=== PATIENT | female | born 1985 | race Caucasian/White ===

== ENCOUNTER → 2021-06-04 16:09 | Outpatient (CLI) | payer OTHER, SELFPAY ==
--- NOTE | 2021-06-04 | DI.US.S_ITS ---
PROCEDURE: US PELVIC COMPLETE INDICATIONS: RETAINED PLACENTA WITHOUT HEMORRHAGE TECHNIQUE: Real-time scanning was performed of the pelvic organs, with image documentation. Additional endovaginal scanning was necessary due to incomplete visualization of the adnexal and endometrial structures by transabdominal scanning. COMPARISON: None. FINDINGS: Uterus: Uterus is normal in size at 10.7 x 5.1 x 7.8 cm. The endometrium measures 4.7 mm in combined thickness. Small amount endometrial fluid. Ovaries: Normal ovaries. No adnexal masses. Other: No pathologic free abdominal or pelvic fluid. IMPRESSION: Small amount of endometrial fluid and no definitive retained products of conception. Of note, no endovaginal exam was performed at the patient's request. Dictated by: Handy JO Interpreted: Ree Rodriguez MD on 06/04/2021 at 17:00 Transcribed by: TELMA on 06/04/2021 at 17:01 Approved by: Ree Rodriguez M.D. on 06/04/2021 at 20:01
== END ==
PROVIDERS: PCP Family Medicine; Referring Provider Midwife; Visit Provider Midwife
DX: O73.0 Retained placenta without hemorrhage (principal)
CPT/HCPCS: 76856

== ENCOUNTER → 2022-05-03 13:25 | Outpatient (CLI) | payer OTHER, SELFPAY ==
--- NOTE | 2022-05-03 13:31 | DI.CT.S_ITS ---
PROCEDURE: CT HAND LEFT WITHOUT CON INDICATIONS: pain TECHNIQUE: Noncontrast 1 mm axial sections acquired through the carpal bones, with coronal and sagittal reformats. COMPARISON: [facility], CT, CT WRIST LEFT WITHOUT CON, 05/03/2022, 14:20. FINDINGS: Image quality: Excellent. Bones: At the base of the 5th metacarpal, there is a moderately displaced, comminuted, intra-articular fracture seen. No additional fractures are seen. No suspicious lytic or blastic lesions are seen. Note is made of negative ulnar variance. This can predispose to development of AVN of the lunate. However, no findings of AVN of the lunate are seen on these plain films. Soft tissues: There is soft tissue swelling seen. IMPRESSION: 5th metacarpal base fracture, with comminution and intra-articular involvement. Dictated by: Charly Green M.D. on 05/03/2022 at 14:56 Approved by: Charly Green M.D. on 05/03/2022 at 14:58
--- NOTE | 2022-05-03 13:32 | DI.CT.S_ITS ---
PROCEDURE: CT WRIST LEFT WITHOUT CON INDICATIONS: FX Left Metacarpal Bone TECHNIQUE: Noncontrast 1 mm axial sections acquired through the carpal bones, with coronal and sagittal reformats. COMPARISON: [facility], CT, CT HAND LEFT WITHOUT CON, 05/03/2022, 14:20. FINDINGS: Image quality: Excellent. Bones: There is a comminuted, impacted fracture seen involving the base of the 5th metacarpal, with intra-articular involvement. Moderate displacement is seen. No dislocation can be seen. No additional fractures are detected. Note is made of negative ulnar variance. This can predispose to development of AVN of the lunate. However, no findings of AVN of the lunate are seen on these plain films. No suspicious lytic or blastic lesions are seen. Soft tissues: Soft tissue swelling is seen. IMPRESSION: Comminuted, intra-articular fracture seen at the base of the 5th metacarpal. Dictated by: Charly Green M.D. on 05/03/2022 at 14:54 Approved by: Charly Green M.D. on 05/03/2022 at 14:56
== END ==
PROVIDERS: PCP Family Medicine; Referring Provider Naturopath; Visit Provider Naturopath
DX: S62.317A Displaced fracture of base of fifth metacarpal bone, left hand, initial encounter for closed fracture (principal); S62.301A Unspecified fracture of second metacarpal bone, left hand, initial encounter for closed fracture; X58.XXXA Exposure to other specified factors, initial encounter
CPT/HCPCS: 73200

== ENCOUNTER → 2023-01-17 13:03 | Outpatient (CLI) | payer OTHER, SELFPAY | PROVIDERS: PCP Physician Assistant; Visit Provider Nurse Practitioner Family | DX: R21 Rash and other nonspecific skin eruption (principal) | CPT/HCPCS: 87070; 87075; 87205 ==

== ENCOUNTER 2023-05-12 11:00 | Outpatient (CLI) | payer OTHER, SELFPAY ==
--- NOTE | 2023-05-12 11:07 | PM.PROC.1 ---
Procedures Date/Time Date of procedure: 05/12/23 Time of procedure: 11:07
== END 2023-05-12 11:50 | disposition home or self-care (01) ==
LOC: LABOR 11:12 → OB 05-14 12:20
PROVIDERS: PCP Physician Assistant; Referring Provider Advanced Practice Midwife; Visit Provider Advanced Practice Midwife
DX: O48.0 Post-term pregnancy (principal); O99.820 Streptococcus B carrier state complicating pregnancy; Z3A.41 41 weeks gestation of pregnancy
CPT/HCPCS: 59025; 76815; G0378; G0379

== ENCOUNTER 2023-05-13 18:56 | Inpatient (IN) | payer OTHER, SELFPAY ==
--- NOTE | 2023-05-13 19:24 | PM.OBHP.1 ---
OB HPI Date/Time Date of admission: 05/13/23 Date Patient Seen: 05/13/23 Time Patient Seen: 19:24 History of Present Condition Chief complaint: OB : 2 Para: 1 Estimated Date of Delivery: 05/05/23 Estimated Gestational Age (weeks): 41w1d Narrative: Odette Antonio is a 38 year old female at 41.1 wks by 10 week US. Today, 05/13/23, she contracted off and on all day, with stronger contractions in the afternoon and suspected SROM of clear fluid at 1900 with vomiting as she was leaving to come to the hospital. She is accompanied by her supportive Shakeel and desires an unmedicated delivery. She had an uncomplicated and received thorough care with CNMs. History of Present care: good care, initiated at week # (10), number of visits (10) and pounds weight gain (48) Dating criteria: based on 1st trimester US only Ultrasounds: normal 1st trimester US and normal mid trimester US Obstetrical complications: none Medical complications: other (Genital HSV, GBS bacteriuria, Covid in , yeast vaginitis during ) Preadmission Labs Blood type: A (-) negative -: Antibody screen: negative, Cystic fibrosis screen: unknown, GBS status: positive, HBsAG: negative, HIV: negative, HSV 1: negative, HSV 2: negative and RPR/VDLR: negative -: Chlamydia screen: not detected and Gonorrhea screen: not detected -: Rubella: immune and Varicella: immune HCT: 12.2 HCAB: negative PAP: Normal (in late 2019 per patient) Cell-free DNA: Declined all genetic testing options 1 hr GTT: 118 Prior (ies) History: NSVB 05/17/2021 Evaluation Evaluation Baseline heart rate: 125 Variability: Moderate (11-25) monitor accelerations: Present Monitor Decelerations: Absent Contraction Frequency (minutes): 3 Uterine Contraction Intensity: Strong/Firm Status: Category l Dilation (cm): 4 Effacement (%): 80 Dilation: 3-4 cm Effacement: >/=80% station: -2 Position of cervix: mid Consistency: soft Sheldon score: 9 Comments: Strong suspicion for ruptured membranes as she vomited while on her way to the hospital; approx 1900 05/13/23. Clear/pink fluid noted during exam. [facility] Medical History Chlamydia Fx metatarsal-closed (11/14/02) GBS bacteriuria Herpes genitalia RhD negative Uterine prolapse Yeast vaginitis Social History (Updated 05/13/23 @ 22:36 by Jadyn Pizarro CNM, MAGDALENA) marital status: number of children: 1 household members: spouse and children housing: house do you feel safe at home: Yes Smoking Status: Former smoker alcohol intake: former Meds Home Medications and Allergies Allergies Allergy/AdvReac Type Severity Reaction Status Date / Time No Known Drug Allergies Allergy Verified 01/17/23 12:35 Review of Systems Review of Systems Narrative: Negative except as mentioned in HPI. OB Exam Vital signs Blood Pressure: 115/59 Pulse Rate: 78 Respiratory Rate: 16 Temperature: 36.6 F Eyes General: appearance normal, both eyes and all related structures Resp Effort & Inspection: normal respiratory effort Auscultation: clear to auscultation bilaterally Cardio Rate: regular rate Rhythm: regular rhythm Extremities Lower extremity: Yes edema Laterality: bilateral edema degree: trace GI Inspection: other (Gravid) Objective Labs 05/13/23 19:45 Assessment and Plan Assessment and Plan Assessment and Plan narrative: A: 38yo female at 41.1wks Early labor SROM suspected Genital HSV Hx uterine prolapse Hx Covid in GBS positive Rh neg FHR Cat 1 P:Admit to center Antibiotics for GBS prophylaxis Confirmed acyclovir for HSV prophylaxs Continous EFM Anticipate NSVB
[2023-05-13 20:50] LABS: Add Manual Diff / Slide Review NO; Basophils Absolute Auto 100 /uL (0-100); Basophils Percent Auto 0.4 % (0-2); Eosinophils Absolute Auto 100 /uL (0-450); Eosinophils Percent Auto 0.6 % (2-4); Hematocrit 39.3 % (36-46); Hemoglobin 13.7 g/dL (12.0-16.0); Lymphocytes Absolute Auto 2200 /uL (1100-4500); Lymphocytes Percent Auto 12.8 % (25-40); Mean Corpuscular HGB Conc 34.9 % (30-36); Mean Corpuscular Hemoglobin 33.5 PG (26-34); Monocytes Absolute Auto 1100 /uL (0-900); Monocytes Percent Auto 6.3 % (3-14); Neutrophils Absolute Auto 13800 /uL (1500-7000); Neutrophils Percent Auto 79.9 % (50-75); Platelet Count 208 X10^3/uL (150-400); Red Blood Cell Count 4.09 X10^6/uL (4.0-5.2); Red Cell Distribution Width 14.1 % (11.6-14.8); White Blood Cell Count 17.2 X10^3/uL (4.5-11.0)
[2023-05-13 22:34] VITALS: BP 125/57
[2023-05-13 22:57] VITALS: BP 115/59; PULSE 78; RESP 16; TEMP 2.6; TEMP 36.6
--- NOTE | 2023-05-13 23:01 | P.PCNOB_ITS ---
Labor & Delivery Delivery date: 05/13/23 Intrapartal Events: Precipitous Labor < 3 hours Induction method: other (nipple stimulation by patient) Delivery monitor: external FHT Route of delivery: L&D Laceration Description: Perineal - 1st Degree Delivery repair: vicryl Quantitative Blood Loss: 499 Anesthesia Type: None Narrative: After presenting at 1905 with strong contractions every 4 minutes, Cat 1 FHR and SVE 4/80/-2, Odette quickly felt the spontaneous urge to push at 1930 and pushed effectively for a normal 2nd stage. IV was placed upon admission and subsequently fell out due to patient movement. It was replaced shortly before delivery. FHR was difficult to monitor due to maternal position in hands and knees. Baseline FHR was between 90-120 from from 1940 to 1954, at which point Odette repositioned and FHR baseline remained 120-140 with intermittent variable decels until delivery. After very slow delivery of head through multiple contractions, baby noted to be grimacing on perineum. CNM verified was restituting, and shoulders delivered easily with next contraction with NSVB of baby at 2032. At foot of bed between mom's feet baby was dried and needed significant stimulation due to low tone and minimal respiratory efforts; cord remained attached with HR>100. After began crying and had good color and tone, she was passed forward between Odette's knees and after a few moments Odette was helped to her side with the skin to skin on her abdomen. Apgars 6/9. They remained skin to skin while cord was cut and placenta was delivered. Placenta delivered spontaneously with maternal efforts and appeared to be intact. 3 vessel cord clamped and cut by father Shakeel at 10 m inutes of life after cord pulsing had stopped. Pitocin administered per third stage protocol through IV. Cord blood collected for blood typing and parent's cord blood banking kit. Perineum inspected and a midline 1st degree perineal tear was found and repaired with a 3-0 vicryl suture. Blood loss measured and estimated loss is 499 mL. Unable to give GBS prophylaxis to due precipitous progression of labor. Mom and baby left stable and . Odette and Shakeel are thrilled to meet their baby and still working on naming her. Parvin Jaeger, SNM Jadyn McKittrick ENVIRONMENTAL REMEDIATION ENGINEER, CNM, IBCLC Baby 1: Infant gender: Female Presentation: vertex Position: Right Occiput Anterior Placenta delivery description: Spontaneous Cord Vessel Description: 3 Vessels score (1 min): 6 score (5 min): 9 weight: 4386 kg Plan for aftercare: Routine care
[2023-05-13] MEDS: ACETAMINOPHEN 325 MG TABLET 975 MG PO (23:24)
[2023-05-13] MEDS: KETOROLAC 30 MG/ML VIAL IV (23:24)
[2023-05-14] MEDS: IBUPROFEN 600 MG TABLET PO (05:55)
--- NOTE | 2023-05-14 16:56 | PM.OBDS.1 ---
Discharge Providers Provider Date of admission: 05/13/23 18:56 Discharge Date: 05/14/23 Primary care physician: Ninfa Lemons PA-C Consults: 05/13/23 19:21 Consult to Anesthesiology Urgent Comment: Consulting Provider: Anesthesiologist Reason for consultation: Epidural Has provider been notified: No 05/14/23 22:03 Consult to Inventory Management Specialist Routine Comment: Discharge provider: Jadyn Pizarro CNM, ARNP Summary Hospital Course Date Patient Seen: 05/14/23 Time Patient Seen: 17:00 Diagnoses: Z39.1, O.80, Z34.83, Z3a.41, Z37.0 Hospital Course: Arrived to hospital in early labor. Precipitous delivery, NSVB of healthy term female, 1st degree laceration repaired. Normal recovery. . Peripartum Data Delivery Method: Natural Vaginal Laceration Description: Perineal - 1st Degree (repaired) Episiotomy description: None Nichols 1: Gender: Female Disposition of : home Discharge Diagnosis (1) RhD negative: Status: Acute (2) Supervision of normal in third trimester: Status: Acute (3) GBS bacteriuria: Status: Acute (4) Herpes genitalia: Status: Acute (5) Lactating mother: Status: Acute Status at Discharge Cognitive/behavioral status at discharge: at baseline, oriented Functional status at discharge: independent ambulation Overall status at discharge: patient is progressing back to baseline Objective Labs 05/13/23 19:45 Labs: Laboratory Results - last 24 hr 05/13/23 05/13/23 05/14/23 19:45 19:45 02:20 WBC 17.2 H RBC 4.09 Hgb 13.7 Hct 39.3 MCV 96.0 MCH 33.5 MCHC 34.9 RDW 14.1 Plt Count 208 Neut % (Auto) 79.9 H Lymph % (Auto) 12.8 L [place] % (Auto) 6.3 Eos % (Auto) 0.6 L Baso % (Auto) 0.4 Neut # (Auto) 57013 H Lymph # (Auto) 2200 [place] # (Auto) 1100 H Eos # (Auto) 100 Baso # (Auto) 100 Blood Type A Negative Antibody Screen Negative Maternal Bleed Negative Exam Vital Signs (past 8 hours): BP 117/82 HR 81 bpm RR 16/min Temp: 99.2 F temporal Const General: healthy appearing Resp Effort & Inspection: normal respiratory effort GI Palpation: soft Other: Fundus firm at U, midline. Lochia light rubra Perineum well approximated with minimal edema Skin General: no rashes or lesions noted and warm Neuro General: patient alert and patient oriented x3 Discharge Plan Discharge Plan Patient Disposition: Home Discharge orders & Medications Prescriptions: Discontinued permethrin 5 % cream 1 applic topical ONCE Qty: 60 0RF Rx Instructions: leave on for 8 to14 hrs before washing off triamcinolone acetonide 0.5 % ointment 1 applic topical TID Qty: 15 0RF mupirocin 2 % ointment 1 applic topical TID Qty: 15 0RF acyclovir 400 mg tablet 400 mg PO 3XD hydroxyzine HCl 25 mg tablet 25 mg PO QID PRN (Reason: itching) Qty: 20 0RF Follow up/Referrals: Ninfa Lemons PA-C [Primary Care Provider] - Jadyn Pizarro CNM, MAGDALENA [[employer]] - 2 Weeks (And 6 weeks. See email for details. ) Activity Restrictions/Additional Instructions: Low syed for two weeks. Diet/Activity/Treatments Diet: Diet as Tolerated and Regular Diet comment: Maximize hydration and fiber intake to avoid constipation Skin/Wound/Dressing Care Skin care: per usual Report to your healthcare provider any signs of infection, such as:: chills, fever, increased pain, unusual drainage and unusual redness Visit Report/Discharge Packet Stand Alone Forms: Patient Portal/API, Stroke Signs & Symptoms Discharge Data Primary Care Provider: Ninfa Lemons
--- NOTE | 2023-05-14 17:21 | PM.PROC.1 ---
Procedures Date/Time Date of procedure: 05/12/23 Time of procedure: 11:10 General Procedure description: NST: Patient here for scheduled NST for postdates @ 41wk 0 days. Baseline: 130 Variability: moderate Accelerations: present Decelerations: none Impression: Reactive NST JOSEFINA: Q1: 1.59 cm Q2: 1.80 cm Q3: 1.25 cm Q4: 2.79 cm Total JOSEFINA 7.42 cm Declines CE today. Baby moving well. Denies LOF or VB. Plan: follow up with provider as scheduled. Induction scheduled for 05/18/23.
[2023-05-14] MEDS: RHO(D) IMMUNE GLOBULIN 1,500 UNIT SYRINGE 1500 UNIT IM (17:55)
[2023-05-14 19:23] VITALS: BP 115/59; PULSE 78; RESP 16; TEMP 2.6; TEMP 36.6
== END 2023-05-14 18:24 | disposition home or self-care (01) | DRG 806 ==
PROVIDERS: Admitting Provider Advanced Practice Midwife; PCP Physician Assistant; Referring Provider Advanced Practice Midwife; Visit Provider Advanced Practice Midwife
DX: O62.3 Precipitate labor (principal); O98.52 Other viral diseases complicating childbirth; Z37.0 Single live birth; O48.0 Post-term pregnancy; Z3A.41 41 weeks gestation of pregnancy; O99.824 Streptococcus B carrier state complicating childbirth; O70.0 First degree perineal laceration during delivery; O76 Abnormality in fetal heart rate and rhythm complicating labor and delivery; B00.9 Herpesviral infection, unspecified; Z67.11 Type A blood, Rh negative; O99.820 Streptococcus B carrier state complicating pregnancy
CPT/HCPCS: 36415; 59025; 59050; 76815; 85025; 85461; 86850; 86900; 86901; G0379; J1885; J2790

== ENCOUNTER → 2023-11-10 09:18 | Outpatient (CLI) | payer OTHER, SELFPAY ==
--- NOTE | 2023-11-10 09:19 | DI.US.S_ITS ---
PROCEDURE: US ABDOMEN LIMITED INDICATIONS: Left lower back mass TECHNIQUE: Real-time scanning was performed of the abdominal, with image documentation. COMPARISON: None. FINDINGS: Targeted ultrasound at the left flank at the palpable abnormality. There is a subcutaneous oval isoechoic mass measuring 3.4 x 1.9 cm seen on the cine clip. IMPRESSION: Left flank subcutaneous oval isoechoic mass measuring 3.4 cm which likely corresponds to the palpable abnormality. Suspect lipoma. Recommend clinical correlation. If the abnormality is painful or enlarging consider ultrasound-guided biopsy. Dictated by: Agus Penaloza M.D. on 11/10/2023 at 12:06 Approved by: Agus Penaloza M.D. on 11/10/2023 at 22:19
== END ==
LOC: US 09:19
PROVIDERS: PCP Family Medicine; Referring Provider Physician Assistant; Visit Provider Physician Assistant
DX: R19.04 Left lower quadrant abdominal swelling, mass and lump (principal); M79.89 Other specified soft tissue disorders; Z80.8 Family history of malignant neoplasm of other organs or systems
CPT/HCPCS: 76705

== ENCOUNTER → 2024-01-04 12:44 | Outpatient (CLI) | payer OTHER, SELFPAY ==
--- NOTE | 2024-01-04 12:45 | DI.US.S_ITS ---
LIMITED ULTRASOUND OF RIGHT BREAST: 01/04/2024 CLINICAL: Palpable right breast lump. No prior exams were available for comparison. Color flow and real-time ultrasound of the right breast 3 o'clock region were performed on the areas of interest. Alvares scale images of the real-time examination were reviewed. There is a 1 cm simple cyst in the right breast at 3 o'clock anterior depth. This correlates as palpated. IMPRESSION: BENIGN There is no sonographic evidence of malignancy. The 1 cm simple cyst in the right breast is benign. A 4 year screening mammogram is recommended. This exam was interpreted at Station ID: [id number]. Electronically Signed By: Eleni roldan/:01/04/2024 13:39:44 letter sent: Clinical Evaluation Ultrasound BI-RADS: 2 Benign
== END ==
LOC: US 12:45
PROVIDERS: PCP Family Medicine; Referring Provider Family Medicine; Visit Provider Family Medicine
DX: N60.01 Solitary cyst of right breast (principal); Z39.1 Encounter for care and examination of lactating mother; Z80.9 Family history of malignant neoplasm, unspecified; M79.89 Other specified soft tissue disorders
CPT/HCPCS: 76642

== ENCOUNTER → 2024-08-25 14:13 | Outpatient (CLI) | payer OTHER, SELFPAY ==
[2024-08-25 20:46] LABS: Influenza A - CEPHEID Flu A NEGATIVE (NEGATIVE); Influenza B - CEPHEID Flu B NEGATIVE (NEGATIVE); Respiratory Syncytial Virus Negative (Negative)
[2024-08-25 21:18] LABS: COVID-19 CEPHEID 4-PLEX PCR POSITIVE (Negative)
== END ==
PROVIDERS: PCP Family Medicine; Visit Provider Physician Assistant Medical
DX: J02.9 Acute pharyngitis, unspecified (principal)
CPT/HCPCS: 0241U